=== PATIENT | male | born 1945 | race Caucasian/White ===

== ENCOUNTER 2017-12-03 09:22 | Inpatient (IN) | payer MEDICARE ==
[~2017-12-03] VITALS: Ht 175.3 cm; Wt 85.8 kg
[~2017-12-03 09:22] MED LIST: ASPI-1265 PO; GLIP10TA11 PO; HYDR-565 PO; LISI10TA4 PO; METF10002 PO; METF500T4 PO
[2017-12-03] MEDS ORDERED: normal saline 1000ML IV soln IV ONE ×2 (09:30→09:55)
[2017-12-03] MEDS ORDERED: levoFLOXACIN-Levaquin 750MG/D5 150 ML IV STA (09:55)
[2017-12-03 09:56] LABS: BASOPHILS % (AUTO) 0.3 % (0-1); EOSINOPHILS % (AUTO) 0.4 % (0-6); HEMOGLOBIN 16.4 g/dl (14.0-17.9); LYMPHOCYTES # (AUTO) 0.4 X10'3 (1.1-4.8); LYMPHOCYTES % (AUTO) 5.1 % (21-51); MEAN CORPUSCULAR HEMOGLOBIN 30.7 PG (27.0-31.0); MEAN CORPUSCULAR VOLUME 87.7 FL (78-98); MONOCYTES # (AUTO) 0.4 X10'3 (0-0.9); MONOCYTES % (AUTO) 5.5 % (2-12); NEUTROPHILS % (AUTO) 88.7 % (42-75); PLATELET COUNT 161 X10'3 (140-440); RED BLOOD COUNT 5.36 X10'6 (4.70-6.10); WHITE BLOOD COUNT 7.9 X10'3 (4.5-11.0)
[2017-12-03 10:22] LABS: CLARITY,URINE CLEAR (Clear); COLOR,URINE YELLOW (Yellow); GLUCOSE, URINE 100 mg/dl (Neg); KETONES,URINE 40 mg/dl (Neg); LEUKOCYTE ESTERASE ,URINE NEGATIVE (Neg); NITRITES, URINE NEGATIVE (Neg); OCCULT BLOOD,URINE SMALL (Neg); PH,URINE 5.5 (4.8-8.0); PROTEIN,URINE 100 mg/dl (Neg); UROBILINOGEN,URINE 0.2 E.U/dL (0.2-1.0)
[2017-12-03 10:22] LABS: ALANINE AMINOTRANSFERASE 31 U/L (12-78); ALBUMIN 4.2 G/DL (3.4-5.0); ALBUMIN/GLOBULIN RATIO 1.1 (1.1-1.5); ALKALINE PHOSPHATASE 45 IU/L (46-116); ANION GAP 15 (8-16); ASPARTATE AMINO TRANSFERASE 21 U/L (10-37); BILIRUBIN,TOTAL 0.7 MG/DL (0.1-1.0); BLOOD UREA NITROGEN 12 MG/DL (7-18); CHLORIDE 99 MMOL/L (99-107); CREATININE 1.09 MG/DL (0.60-1.10); GLUCOSE 250 MG/DL (70-104); MAGNESIUM 1.7 MG/DL (1.5-2.4); POTASSIUM 4.2 MMOL/L (3.5-5.1); SODIUM 137 MMOL/L (135-145); TOTAL CARBON DIOXIDE 23.2 MMOL/L (24-32); TOTAL PROTEIN 8.2 G/DL (6.4-8.2); eGFR 66 ML/MIN
[2017-12-03 10:29] LABS: UA COLLECTION TYPE STRAIGHT CATH
[2017-12-03 10:30] LABS: BACTERIA,URINE NONE SEEN /HPF (Neg); HYALINE CASTS 0-3 /LPF (NEGATIVE); MUCUS STRANDS FEW /LPF (Neg); RBC,URINE 0-2 /HPF (0-2); SQUAMOUS EPITHELIAL CELL,UR NONE SEEN /LPF (FEW); WBC,URINE 0-4 /HPF (0-4)
[2017-12-03 11:05] LABS: PARTIAL THROMBOPLASTIN TIME 29 SECONDS (22-32); PROTHROMBIN TIME 10.2 SECONDS (9.0-12.0)
[2017-12-03] MEDS ORDERED: furosemide 10 MG/1 ML 10ml inj IV ONE ×2 (12:45→14:30)
[2017-12-03] MEDS ORDERED: nitroGLYCERIN 0.4mg SUBLingual tab SL ONE (12:45)
[2017-12-03 13:30] LABS: ABG BASE EXCESS -5.9 mmol/L (-2.0-3.0); ABG HCO3 18.8 mmol/L (22.0-26.0); ABG OXYGEN SATURATION 96.5 % (95-98); ABG PCO2 (T) 35.2 mmHg (35.0-48.0); ABG PH (T) 7.346 (7.350-7.450); ABG PO2 (T) 87.8 mmHg (83-108); ALLEN'S TEST Positive; FCOHb 0.9 % (0.5-1.5); FMetHb 0.3 % (0.3-1.12); FO2Hb 95.3 % (94-100); MINUTE VOLUME 21 L/min; RESPIRATORY RATE 18 b/min; RESPIRATORY RATE (OBSERVED) 25 b/min; TOTAL HEMOGLOBIN 16.6 G/dl (14.0-18.0)
[2017-12-03] MEDS: normal saline 1000ml 1,000 ML IV SCH (14:28)
[2017-12-03] MEDS: K and/or MAG REPLACEMENT MC SCH (14:30)
[2017-12-03] MEDS ORDERED: acetaminophen 325mg tablet PO PRN ×2 (14:30)
[2017-12-03] MEDS ORDERED: HYDROcodone/acetaminophen 5mg/325mg tablet PO PRN (14:30)
[2017-12-03] MEDS ORDERED: potassium Cl 40MEQ/NS 500ml 500 ML IV PRN ×2 (14:30)
[2017-12-03] MEDS ORDERED: morphine 4 MG/ML inj SYRINge IV PRN ×2 (14:30)
[2017-12-03] MEDS ORDERED: glucagon, human recombinant 1mg kit SUBCUT PRN (14:30)
[2017-12-03] MEDS ORDERED: diphenhydrAMINE 50 mg/ml inj IV PRN (14:30)
[2017-12-03] MEDS ORDERED: ondansetron/PF 4mg/2ml inj IV PRN (14:30)
[2017-12-03] MEDS ORDERED: potassium Cl 20 mEq SR tablet PO PRN ×2 (14:30)
[2017-12-03] MEDS ORDERED: magnesium 4gm in 100ml NS 100 ML IV PRN (14:30)
[2017-12-03] MEDS ORDERED: aspirin 325mg tablet PO ONE (14:30)
[2017-12-03] MEDS ORDERED: magnesium 2GM in 50ml NS 50 ML IV PRN (14:30)
[2017-12-03] MEDS ORDERED: MESSAGE TO PHARMACY PO ONE (14:30)
[2017-12-03] MEDS ORDERED: magnesium Cl slow-release 64mg tablet PO PRN (14:30)
[2017-12-03] MEDS ORDERED: magnesium hydroxide 30ml (MOM) UD suspension PO PRN (14:30)
[2017-12-03] MEDS ORDERED: dextrose ORAL solution 15 GM/59 ML bottle PO PRN ×2 (14:30)
[2017-12-03] MEDS ORDERED: isosorbide mononitrate 30mg tab.SR.24H PO ONE (14:30)
[2017-12-03] MEDS ORDERED: dextrose 50%-water 50ml dispensing syringe IV PRN ×2 (14:30)
[2017-12-03] MEDS: vancomycin/NS 1 GM ADD-VANTAGE 250 ML IV SCH ×3 (14:55→19:00)
[2017-12-03] MEDS ORDERED: heparin 10,000 units/1 ML INJ IV ONE (15:25)
[2017-12-03 17:33] LABS: BASOPHILS % (AUTO) 0 % (0-1); EOSINOPHILS % (AUTO) 0 % (0-6); HEMATOCRIT 47.2 % (42.0-52.0); HEMOGLOBIN 16.5 g/dl (14.0-17.9); LYMPHOCYTES % (AUTO) 9.4 % (21-51); MEAN CORPUSCULAR HEMOGLOBIN 30.7 PG (27.0-31.0); MEAN CORPUSCULAR HGB CONC 34.9 % (33.0-36.5); MEAN PLATELET VOLUME 9.6 FL (7.4-10.4); MONOCYTES # (AUTO) 0.9 X10'3 (0-0.9); MONOCYTES % (AUTO) 8.4 % (2-12); NEUTROPHILS # (AUTO) 8.4 X10'3 (1.8-7.7); NEUTROPHILS % (AUTO) 82.2 % (42-75); PLATELET COUNT 154 X10'3 (140-440); RED BLOOD COUNT 5.37 X10'6 (4.70-6.10); WHITE BLOOD COUNT 10.2 X10'3 (4.5-11.0)
[2017-12-03 17:55] LABS: INR 1.1 INR; PROTHROMBIN TIME 11.4 SECONDS (9.0-12.0)
[2017-12-03 17:59] LABS: PARTIAL THROMBOPLASTIN TIME 110 SECONDS (22-32)
[2017-12-03 18:00] VITALS: BP 136/73
[2017-12-03] MEDS ORDERED: heparin, porcine 5000 units/ml vial SQ SCH (20:00)
[2017-12-03] MEDS: furosemide 10 MG/1 ML 10ml inj IV SCH (20:09)
[2017-12-03] MEDS: HYDROcodone/acetaminophen 10/325mg tab PO PRN (20:16)
[2017-12-03] MEDS: carVEDilol 3.125mg tablet PO SCH (20:17)
[2017-12-03] MEDS: insulin glargine (Lantus) pen - multi-dose SQ SCH (21:00)
[2017-12-03] MEDS ORDERED: temazepam 15mg capsule PO PRN (21:00)
[2017-12-03 22:00] VITALS: BP 105/47
[2017-12-03] MEDS ORDERED: tirofiban 5mg in NS 100mL 100 ML IV SCH (22:40)
[2017-12-03] MEDS: tirofiban 5mg in NS 100mL 100 ML IV SCH (23:29)
[2017-12-03] MEDS: heparin 10,000 units/1 ML INJ IV PRN (23:37)
[2017-12-04] VITALS (12 sets, daily range): BP systolic 101–149; BP diastolic 48–82
[2017-12-04] MEDS: tirofiban 5mg in NS 100mL 100 ML IV SCH (02:53)
[2017-12-04] MEDS: HYDROcodone/acetaminophen 10/325mg tab PO PRN ×4 (03:00→13:22)
[2017-12-04 05:58] LABS: BASOPHILS % (AUTO) 0 % (0-1); EOSINOPHILS % (AUTO) 0 % (0-6); HEMATOCRIT 42.1 % (42.0-52.0); HEMOGLOBIN 14.8 g/dl (14.0-17.9); LYMPHOCYTES # (AUTO) 1.1 X10'3 (1.1-4.8); LYMPHOCYTES % (AUTO) 13.5 % (21-51); MEAN CORPUSCULAR HEMOGLOBIN 31.1 PG (27.0-31.0); MEAN CORPUSCULAR HGB CONC 35.2 % (33.0-36.5); MEAN CORPUSCULAR VOLUME 88.2 FL (78-98); MEAN PLATELET VOLUME 9.3 FL (7.4-10.4); MONOCYTES # (AUTO) 0.7 X10'3 (0-0.9); MONOCYTES % (AUTO) 7.9 % (2-12); NEUTROPHILS # (AUTO) 6.6 X10'3 (1.8-7.7); NEUTROPHILS % (AUTO) 78.6 % (42-75); PLATELET COUNT 148 X10'3 (140-440); RED BLOOD COUNT 4.77 X10'6 (4.70-6.10); RED CELL DISTRIBUTION WIDTH 12.9 % (11.5-14.5); WHITE BLOOD COUNT 8.4 X10'3 (4.5-11.0)
[2017-12-04] MEDS ORDERED: heparin 1,000unit/ml 10ml vial 10 ML ONE (06:05)
[2017-12-04] MEDS ORDERED: LIDOcaine 1%/PF (10mg/ml) 5ml vial ONE (06:05)
[2017-12-04] MEDS ORDERED: iohexol 350MG/ML 100ml bottle IV ONE (06:05)
[2017-12-04 06:17] LABS: ALANINE AMINOTRANSFERASE 47 U/L (12-78); ALBUMIN 3.3 G/DL (3.4-5.0); ALBUMIN/GLOBULIN RATIO 0.9 (1.1-1.5); ALKALINE PHOSPHATASE 31 IU/L (46-116); ANION GAP 9 (8-16); ASPARTATE AMINO TRANSFERASE 240 U/L (10-37); BILIRUBIN,TOTAL 0.5 MG/DL (0.1-1.0); BLOOD UREA NITROGEN 16 MG/DL (7-18); BUN/CREATININE RATIO 17.8 (5.4-32.0); CALCIUM 8.1 MG/DL (8.5-10.1); CHLORIDE 101 MMOL/L (99-107); CHOL/HDL RATIO 2.7 (0.00-4.99); CHOLESTEROL 128 MG/DL (0-200); GLUCOSE 230 MG/DL (70-104); HDL CHOLESTEROL 47 MG/DL (35-60); LDL CHOLESTEROL 69 MG/DL (50-100); MAGNESIUM 1.8 MG/DL (1.5-2.4); PHOSPHORUS 2.7 MG/DL (2.3-4.5); POTASSIUM 3.5 MMOL/L (3.5-5.1); SODIUM 137 MMOL/L (135-145); TOTAL CARBON DIOXIDE 26.6 MMOL/L (24-32); TOTAL PROTEIN 6.9 G/DL (6.4-8.2); TRIGLYCERIDES 62 MG/DL (20-135); eGFR 82 ML/MIN
[2017-12-04] MEDS ORDERED: midazolam 2 mg/2 ml injection ONE (06:38)
[2017-12-04] MEDS ORDERED: ondansetron/PF 4mg/2ml inj IV PRN (07:40)
[2017-12-04] MEDS ORDERED: proCHLORperazine 10 MG/2 ml inj IV PRN (07:40)
[2017-12-04] MEDS ORDERED: OXAZEpam 15mg capsule PO PRN (07:40)
[2017-12-04] MEDS ORDERED: normal saline 1000ml 1,000 ML IV SCH (07:40)
[2017-12-04] MEDS: K and/or MAG REPLACEMENT MC SCH (08:00)
[2017-12-04] MEDS: levoFLOXACIN-Levaquin 500mg/D5 100 ML IV SCH (08:56)
[2017-12-04] MEDS: carVEDilol 3.125mg tablet PO SCH ×2 (08:56→20:16)
[2017-12-04] MEDS: furosemide 10 MG/1 ML 10ml inj IV SCH ×2 (08:56→20:20)
[2017-12-04] MEDS: aspirin 81mg tab.chew PO SCH (08:57)
[2017-12-04] MEDS: lisinopril 20mg tablet PO SCH (08:57)
[2017-12-04] MEDS: isosorbide mononitrate 30mg tab.SR.24H PO SCH (08:57)
[2017-12-04] MEDS: oseltamivir phos 75mg capsule PO SCH ×2 (09:24→20:17)
[2017-12-04] MEDS: insulin Lispro (HumaLOG) vial - multi-dose SQ SCH (13:50)
[2017-12-04] MEDS: mag hydrox/Alum hydrox/simeth 30ml oral suspension PO PRN (20:16)
[2017-12-04] MEDS: lactobacillus rhamnosus 10,000 MMU CELLS/CAPSULE PO SCH (20:17)
[2017-12-04] MEDS: heparin 10,000 units/1 ML INJ IV PRN (20:28)
[2017-12-04] MEDS: insulin glargine (Lantus) pen - multi-dose SQ SCH (22:46)
[2017-12-05] VITALS (9 sets, daily range): BP systolic 108–145; BP diastolic 45–59
[2017-12-05] MEDS: HYDROcodone/acetaminophen 10/325mg tab PO PRN ×4 (01:23→22:08)
[2017-12-05 02:15] LABS: BASOPHILS % (AUTO) 0.2 % (0-1); EOSINOPHILS % (AUTO) 0.5 % (0-6); HEMATOCRIT 41.2 % (42.0-52.0); HEMOGLOBIN 14.6 g/dl (14.0-17.9); LYMPHOCYTES # (AUTO) 1.3 X10'3 (1.1-4.8); LYMPHOCYTES % (AUTO) 19.7 % (21-51); MEAN CORPUSCULAR HEMOGLOBIN 31.1 PG (27.0-31.0); MEAN CORPUSCULAR HGB CONC 35.4 % (33.0-36.5); MEAN CORPUSCULAR VOLUME 87.9 FL (78-98); MEAN PLATELET VOLUME 9.9 FL (7.4-10.4); MONOCYTES # (AUTO) 0.5 X10'3 (0-0.9); MONOCYTES % (AUTO) 7.7 % (2-12); NEUTROPHILS # (AUTO) 4.7 X10'3 (1.8-7.7); NEUTROPHILS % (AUTO) 71.9 % (42-75); PLATELET COUNT 126 X10'3 (140-440); RED BLOOD COUNT 4.69 X10'6 (4.70-6.10); RED CELL DISTRIBUTION WIDTH 12.7 % (11.5-14.5); WHITE BLOOD COUNT 6.5 X10'3 (4.5-11.0)
[2017-12-05 02:29] LABS: ALANINE AMINOTRANSFERASE 49 U/L (12-78); ALBUMIN 3.1 G/DL (3.4-5.0); ALBUMIN/GLOBULIN RATIO 0.8 (1.1-1.5); ALKALINE PHOSPHATASE 30 IU/L (46-116); ANION GAP 10 (8-16); ASPARTATE AMINO TRANSFERASE 181 U/L (10-37); BILIRUBIN,TOTAL 0.3 MG/DL (0.1-1.0); BLOOD UREA NITROGEN 22 MG/DL (7-18); BUN/CREATININE RATIO 21.4 (5.4-32.0); CHLORIDE 98 MMOL/L (99-107); CREATININE 1.03 MG/DL (0.60-1.10); GLUCOSE 200 MG/DL (70-104); MAGNESIUM 1.9 MG/DL (1.5-2.4); PHOSPHORUS 2.6 MG/DL (2.3-4.5); POTASSIUM 3.5 MMOL/L (3.5-5.1); SODIUM 136 MMOL/L (135-145); TOTAL CARBON DIOXIDE 28.2 MMOL/L (24-32); TOTAL PROTEIN 6.8 G/DL (6.4-8.2); eGFR 71 ML/MIN
[2017-12-05] MEDS ORDERED: potassium Cl 20 mEq SR tablet PO STA (06:19)
[2017-12-05] MEDS ORDERED: magnesium 2GM in 50ml NS 50 ML IV ONE (06:20)
[2017-12-05] MEDS: furosemide 10 MG/1 ML 10ml inj IV SCH ×2 (07:47→20:14)
[2017-12-05] MEDS: carVEDilol 3.125mg tablet PO SCH ×2 (07:47→20:12)
[2017-12-05] MEDS: isosorbide mononitrate 30mg tab.SR.24H PO SCH (07:47)
[2017-12-05] MEDS: lactobacillus rhamnosus 10,000 MMU CELLS/CAPSULE PO SCH ×2 (07:47→20:12)
[2017-12-05] MEDS: amiodarone 200mg tablet PO SCH (07:48)
[2017-12-05] MEDS: lisinopril 20mg tablet PO SCH (07:48)
[2017-12-05] MEDS: oseltamivir phos 75mg capsule PO SCH ×2 (07:48→20:12)
[2017-12-05] MEDS: aspirin 81mg tab.chew PO SCH (07:48)
[2017-12-05] MEDS: levoFLOXACIN-Levaquin 500mg/D5 100 ML IV SCH (07:49)
[2017-12-05] MEDS: K and/or MAG REPLACEMENT MC SCH (08:00)
[2017-12-05] MEDS: spironolactone 25 MG tablet PO SCH (08:14)
[2017-12-05] MEDS: insulin Lispro (HumaLOG) vial - multi-dose SQ SCH ×2 (13:08→20:09)
[2017-12-05] MEDS ORDERED: VANCOMYCIN LEVEL IV NR (14:30)
[2017-12-05] MEDS: normal saline 1000ml 1,000 ML IV SCH (15:18)
[2017-12-05] MEDS: mag hydrox/Alum hydrox/simeth 30ml oral suspension PO PRN ×2 (17:04→22:08)
[2017-12-05] MEDS: insulin glargine (Lantus) pen - multi-dose SQ SCH (22:18)
[2017-12-06] MEDS: heparin 10,000 units/1 ML INJ IV PRN (01:36)
[2017-12-06 03:00] VITALS: BP 123/57
[2017-12-06] MEDS: HYDROcodone/acetaminophen 10/325mg tab PO PRN ×3 (04:59→20:29)
[2017-12-06 05:23] LABS: BASOPHILS % (AUTO) 0.4 % (0-1); EOSINOPHILS % (AUTO) 0.3 % (0-6); HEMATOCRIT 41.9 % (42.0-52.0); HEMOGLOBIN 14.6 g/dl (14.0-17.9); LYMPHOCYTES # (AUTO) 1.7 X10'3 (1.1-4.8); LYMPHOCYTES % (AUTO) 31.4 % (21-51); MEAN CORPUSCULAR HEMOGLOBIN 30.9 PG (27.0-31.0); MEAN CORPUSCULAR HGB CONC 34.8 % (33.0-36.5); MEAN CORPUSCULAR VOLUME 88.8 FL (78-98); MEAN PLATELET VOLUME 9.7 FL (7.4-10.4); MONOCYTES # (AUTO) 0.6 X10'3 (0-0.9); MONOCYTES % (AUTO) 10.5 % (2-12); NEUTROPHILS # (AUTO) 3.1 X10'3 (1.8-7.7); NEUTROPHILS % (AUTO) 57.4 % (42-75); PLATELET COUNT 121 X10'3 (140-440); RED BLOOD COUNT 4.72 X10'6 (4.70-6.10); WHITE BLOOD COUNT 5.3 X10'3 (4.5-11.0)
[2017-12-06 05:30] VITALS: BP 126/58
[2017-12-06 05:47] LABS: ALANINE AMINOTRANSFERASE 46 U/L (12-78); ALBUMIN 2.9 G/DL (3.4-5.0); ALBUMIN/GLOBULIN RATIO 0.8 (1.1-1.5); ALKALINE PHOSPHATASE 29 IU/L (46-116); ANION GAP 7 (8-16); ASPARTATE AMINO TRANSFERASE 105 U/L (10-37); BILIRUBIN,TOTAL 0.4 MG/DL (0.1-1.0); BLOOD UREA NITROGEN 20 MG/DL (7-18); CALCIUM 7.9 MG/DL (8.5-10.1); CHLORIDE 98 MMOL/L (99-107); CREATININE 0.91 MG/DL (0.60-1.10); GLUCOSE 130 MG/DL (70-104); MAGNESIUM 2.2 MG/DL (1.5-2.4); PHOSPHORUS 2.5 MG/DL (2.3-4.5); POTASSIUM 3.6 MMOL/L (3.5-5.1); SODIUM 136 MMOL/L (135-145); TOTAL CARBON DIOXIDE 30.7 MMOL/L (24-32); TOTAL PROTEIN 6.4 G/DL (6.4-8.2); eGFR 81 ML/MIN
[2017-12-06] MEDS: furosemide 10 MG/1 ML 10ml inj IV SCH ×2 (07:40→20:27)
[2017-12-06] MEDS: oseltamivir phos 75mg capsule PO SCH ×2 (07:41→20:28)
[2017-12-06] MEDS: lisinopril 20mg tablet PO SCH (07:41)
[2017-12-06] MEDS: amiodarone 200mg tablet PO SCH (07:41)
[2017-12-06] MEDS: spironolactone 25 MG tablet PO SCH (07:41)
[2017-12-06] MEDS: carVEDilol 3.125mg tablet PO SCH ×2 (07:41→20:29)
[2017-12-06] MEDS: aspirin 81mg tab.chew PO SCH (07:41)
[2017-12-06] MEDS: lactobacillus rhamnosus 10,000 MMU CELLS/CAPSULE PO SCH ×2 (07:41→20:28)
[2017-12-06] MEDS: isosorbide mononitrate 30mg tab.SR.24H PO SCH (07:41)
[2017-12-06] MEDS: K and/or MAG REPLACEMENT MC SCH (08:00)
[2017-12-06] MEDS: insulin Lispro (HumaLOG) vial - multi-dose SQ SCH ×3 (09:16→20:49)
[2017-12-06 11:00] VITALS: BP 119/41
[2017-12-06] MEDS: levoFLOXACIN 500mg tablet PO SCH (11:33)
[2017-12-06] MEDS: mag hydrox/Alum hydrox/simeth 30ml oral suspension PO PRN (14:02)
[2017-12-06] MEDS ORDERED: lactulose 20gm/30ml cup PO ONE (14:30)
[2017-12-06 15:00] VITALS: BP 110/50
[2017-12-06 17:30] VITALS: BP 118/51
[2017-12-06] MEDS: docusate sod 100mg capsule PO SCH (20:28)
[2017-12-06 22:00] VITALS: BP 140/52
[2017-12-06] MEDS: insulin glargine (Lantus) pen - multi-dose SQ SCH (22:34)
[2017-12-06] MEDS: calcium carbonate 500mg chew tablet PO PRN (22:36)
[2017-12-07 03:30] LABS: BASOPHILS % (AUTO) 0.6 % (0-1); EOSINOPHILS % (AUTO) 0.2 % (0-6); HEMATOCRIT 41.6 % (42.0-52.0); HEMOGLOBIN 14.5 g/dl (14.0-17.9); LYMPHOCYTES # (AUTO) 1.7 X10'3 (1.1-4.8); LYMPHOCYTES % (AUTO) 36.2 % (21-51); MEAN CORPUSCULAR HGB CONC 34.9 % (33.0-36.5); MEAN CORPUSCULAR VOLUME 88.9 FL (78-98); MEAN PLATELET VOLUME 9.1 FL (7.4-10.4); MONOCYTES # (AUTO) 0.5 X10'3 (0-0.9); MONOCYTES % (AUTO) 10.7 % (2-12); NEUTROPHILS # (AUTO) 2.5 X10'3 (1.8-7.7); NEUTROPHILS % (AUTO) 52.3 % (42-75); PLATELET COUNT 115 X10'3 (140-440); RED BLOOD COUNT 4.68 X10'6 (4.70-6.10); RED CELL DISTRIBUTION WIDTH 12.8 % (11.5-14.5); WHITE BLOOD COUNT 4.7 X10'3 (4.5-11.0)
[2017-12-07 03:46] LABS: ALANINE AMINOTRANSFERASE 47 U/L (12-78); ALBUMIN 2.9 G/DL (3.4-5.0); ALBUMIN/GLOBULIN RATIO 0.9 (1.1-1.5); ALKALINE PHOSPHATASE 33 IU/L (46-116); ANION GAP 8 (8-16); ASPARTATE AMINO TRANSFERASE 67 U/L (10-37); BILIRUBIN,TOTAL 0.4 MG/DL (0.1-1.0); BLOOD UREA NITROGEN 19 MG/DL (7-18); BUN/CREATININE RATIO 22.4 (5.4-32.0); CALCIUM 8.2 MG/DL (8.5-10.1); CHLORIDE 97 MMOL/L (99-107); CREATININE 0.85 MG/DL (0.60-1.10); GLUCOSE 113 MG/DL (70-104); PHOSPHORUS 3.3 MG/DL (2.3-4.5); POTASSIUM 3.1 MMOL/L (3.5-5.1); SODIUM 135 MMOL/L (135-145); TOTAL CARBON DIOXIDE 30.4 MMOL/L (24-32); TOTAL PROTEIN 6.3 G/DL (6.4-8.2); eGFR 88 ML/MIN
[2017-12-07] MEDS: HYDROcodone/acetaminophen 10/325mg tab PO PRN ×4 (05:28→23:29)
[2017-12-07 05:30] VITALS: BP 160/66
[2017-12-07] MEDS: spironolactone 25 MG tablet PO SCH (07:54)
[2017-12-07] MEDS: furosemide 10 MG/1 ML 10ml inj IV SCH ×2 (07:54→20:15)
[2017-12-07] MEDS: lactobacillus rhamnosus 10,000 MMU CELLS/CAPSULE PO SCH ×2 (07:55→20:13)
[2017-12-07] MEDS: lisinopril 20mg tablet PO SCH (07:55)
[2017-12-07] MEDS: aspirin 81mg tab.chew PO SCH (07:55)
[2017-12-07] MEDS: docusate sod 100mg capsule PO SCH ×2 (07:55→20:00)
[2017-12-07] MEDS: carVEDilol 3.125mg tablet PO SCH ×2 (07:55→19:21)
[2017-12-07] MEDS: amiodarone 200mg tablet PO SCH (07:55)
[2017-12-07] MEDS: oseltamivir phos 75mg capsule PO SCH ×2 (07:55→20:12)
[2017-12-07] MEDS: isosorbide mononitrate 30mg tab.SR.24H PO SCH (07:55)
[2017-12-07] MEDS: K and/or MAG REPLACEMENT MC SCH (08:00)
[2017-12-07] MEDS: insulin Lispro (HumaLOG) vial - multi-dose SQ SCH ×3 (09:36→21:05)
[2017-12-07] MEDS: levoFLOXACIN 500mg tablet PO SCH (11:49)
[2017-12-07] MEDS: normal saline 1000ml 1,000 ML IV SCH (14:28)
[2017-12-07] MEDS: mag hydrox/Alum hydrox/simeth 30ml oral suspension PO PRN ×2 (15:03→22:00)
[2017-12-07 16:36] VITALS: BP 139/63
[2017-12-07 18:00] VITALS: BP 143/63
[2017-12-07 22:00] VITALS: BP 143/52
[2017-12-07] MEDS: insulin glargine (Lantus) pen - multi-dose SQ SCH (22:10)
[2017-12-08 02:00] VITALS: BP 106/50
[2017-12-08 02:27] LABS: BASOPHILS % (AUTO) 0.7 % (0-1); EOSINOPHILS % (AUTO) 0.7 % (0-6); HEMATOCRIT 39.7 % (42.0-52.0); HEMOGLOBIN 13.6 g/dl (14.0-17.9); LYMPHOCYTES # (AUTO) 2.1 X10'3 (1.1-4.8); LYMPHOCYTES % (AUTO) 46.3 % (21-51); MEAN CORPUSCULAR HEMOGLOBIN 30.4 PG (27.0-31.0); MEAN CORPUSCULAR HGB CONC 34.3 % (33.0-36.5); MEAN CORPUSCULAR VOLUME 88.5 FL (78-98); MEAN PLATELET VOLUME 9.3 FL (7.4-10.4); MONOCYTES # (AUTO) 0.6 X10'3 (0-0.9); MONOCYTES % (AUTO) 12.2 % (2-12); NEUTROPHILS # (AUTO) 1.8 X10'3 (1.8-7.7); NEUTROPHILS % (AUTO) 40.1 % (42-75); PLATELET COUNT 114 X10'3 (140-440); RED BLOOD COUNT 4.48 X10'6 (4.70-6.10); RED CELL DISTRIBUTION WIDTH 12.3 % (11.5-14.5); WHITE BLOOD COUNT 4.5 X10'3 (4.5-11.0)
[2017-12-08 02:49] LABS: ALBUMIN 2.9 G/DL (3.4-5.0); ALBUMIN/GLOBULIN RATIO 0.9 (1.1-1.5); ANION GAP 8 (8-16); ASPARTATE AMINO TRANSFERASE 51 U/L (10-37); BILIRUBIN,TOTAL 0.3 MG/DL (0.1-1.0); BLOOD UREA NITROGEN 19 MG/DL (7-18); BUN/CREATININE RATIO 20.7 (5.4-32.0); CALCIUM 8.1 MG/DL (8.5-10.1); CHLORIDE 98 MMOL/L (99-107); CREATININE 0.92 MG/DL (0.60-1.10); GLUCOSE 102 MG/DL (70-104); PHOSPHORUS 3.4 MG/DL (2.3-4.5); POTASSIUM 3.2 MMOL/L (3.5-5.1); SODIUM 138 MMOL/L (135-145); TOTAL CARBON DIOXIDE 31.6 MMOL/L (24-32); TOTAL PROTEIN 6.3 G/DL (6.4-8.2); eGFR 80 ML/MIN
[2017-12-08 02:50] LABS: ALANINE AMINOTRANSFERASE 41 U/L (12-78); ALKALINE PHOSPHATASE 35 IU/L (46-116)
[2017-12-08] MEDS: HYDROcodone/acetaminophen 5mg/325mg tablet PO PRN (03:42)
[2017-12-08 06:00] VITALS: BP 141/62
[2017-12-08] MEDS: carVEDilol 3.125mg tablet PO SCH ×2 (07:47→19:23)
[2017-12-08] MEDS: isosorbide mononitrate 30mg tab.SR.24H PO SCH (07:47)
[2017-12-08] MEDS: amiodarone 200mg tablet PO SCH (07:47)
[2017-12-08] MEDS: lactobacillus rhamnosus 10,000 MMU CELLS/CAPSULE PO SCH ×2 (07:47→19:23)
[2017-12-08] MEDS: docusate sod 100mg capsule PO SCH ×2 (07:47→19:45)
[2017-12-08] MEDS: aspirin 81mg tab.chew PO SCH (07:47)
[2017-12-08] MEDS: lisinopril 20mg tablet PO SCH (07:47)
[2017-12-08] MEDS: furosemide 10 MG/1 ML 10ml inj IV SCH ×2 (07:48→19:27)
[2017-12-08] MEDS: spironolactone 25 MG tablet PO SCH (07:48)
[2017-12-08] MEDS: insulin Lispro (HumaLOG) vial - multi-dose SQ SCH ×3 (08:58→19:42)
[2017-12-08] MEDS: oseltamivir phos 75mg capsule PO SCH ×2 (10:56→19:24)
[2017-12-08] MEDS: levoFLOXACIN 500mg tablet PO SCH (10:56)
[2017-12-08 11:00] VITALS: BP 133/58
[2017-12-08] MEDS: HYDROcodone/acetaminophen 10/325mg tab PO PRN ×3 (11:20→23:35)
[2017-12-08 15:00] VITALS: BP 133/57
[2017-12-08 18:00] VITALS: BP 113/53
[2017-12-08] MEDS ORDERED: magnesium 4gm in 100ml NS 100 ML IV PRN (18:35)
[2017-12-08] MEDS ORDERED: magnesium 2GM in 50ml NS 50 ML IV PRN (18:35)
[2017-12-08] MEDS ORDERED: potassium Cl 20 mEq SR tablet PO PRN (18:35)
[2017-12-08] MEDS ORDERED: potassium Cl 40MEQ/NS 500ml 500 ML IV PRN ×2 (18:35)
[2017-12-08] MEDS ORDERED: magnesium Cl slow-release 64mg tablet PO PRN (18:35)
[2017-12-08] MEDS: K and/or MAG REPLACEMENT MC SCH (18:53)
[2017-12-08] MEDS: potassium Cl 20 mEq SR tablet PO PRN ×2 (19:23→23:35)
[2017-12-08 22:00] VITALS: BP 126/60
[2017-12-08] MEDS: insulin glargine (Lantus) pen - multi-dose SQ SCH (22:01)
[2017-12-08] MEDS: heparin 10,000 units/1 ML INJ IV PRN (22:12)
[2017-12-08] MEDS: mag hydrox/Alum hydrox/simeth 30ml oral suspension PO PRN (23:34)
[2017-12-09 03:00] VITALS: BP 123/75
[2017-12-09 05:24] LABS: BASOPHILS % (AUTO) 0.8 % (0-1); EOSINOPHILS # (AUTO) 0.1 X10'3 (0-0.9); EOSINOPHILS % (AUTO) 1.3 % (0-6); HEMATOCRIT 38.7 % (42.0-52.0); HEMOGLOBIN 13.6 g/dl (14.0-17.9); LYMPHOCYTES # (AUTO) 2.1 X10'3 (1.1-4.8); LYMPHOCYTES % (AUTO) 43.6 % (21-51); MEAN CORPUSCULAR HGB CONC 35.1 % (33.0-36.5); MEAN CORPUSCULAR VOLUME 88.3 FL (78-98); MEAN PLATELET VOLUME 9.8 FL (7.4-10.4); MONOCYTES # (AUTO) 0.6 X10'3 (0-0.9); MONOCYTES % (AUTO) 11.5 % (2-12); NEUTROPHILS # (AUTO) 2.1 X10'3 (1.8-7.7); NEUTROPHILS % (AUTO) 42.8 % (42-75); PLATELET COUNT 119 X10'3 (140-440); RED BLOOD COUNT 4.38 X10'6 (4.70-6.10); RED CELL DISTRIBUTION WIDTH 12.9 % (11.5-14.5); WHITE BLOOD COUNT 4.9 X10'3 (4.5-11.0)
[2017-12-09] MEDS: HYDROcodone/acetaminophen 10/325mg tab PO PRN ×3 (05:34→23:00)
[2017-12-09] MEDS: calcium carbonate 500mg chew tablet PO PRN (05:34)
[2017-12-09 06:00] VITALS: BP 158/67
[2017-12-09 06:06] LABS: GLUCOSE 132 MG/DL (70-104); SODIUM 138 MMOL/L (135-145)
[2017-12-09 06:07] LABS: ALBUMIN 2.9 G/DL (3.4-5.0); ANION GAP 7 (8-16); BLOOD UREA NITROGEN 17 MG/DL (7-18); BUN/CREATININE RATIO 18.3 (5.4-32.0); CALCIUM 8.5 MG/DL (8.5-10.1); CHLORIDE 99 MMOL/L (99-107); CREATININE 0.93 MG/DL (0.60-1.10); MAGNESIUM 2.1 MG/DL (1.5-2.4); POTASSIUM 3.5 MMOL/L (3.5-5.1); TOTAL CARBON DIOXIDE 32.3 MMOL/L (24-32); eGFR 79 ML/MIN
[2017-12-09] MEDS: docusate sod 100mg capsule PO SCH ×2 (07:49→19:27)
[2017-12-09] MEDS: carVEDilol 3.125mg tablet PO SCH ×2 (07:52→19:27)
[2017-12-09] MEDS: spironolactone 25 MG tablet PO SCH (07:52)
[2017-12-09] MEDS: isosorbide mononitrate 30mg tab.SR.24H PO SCH (07:52)
[2017-12-09] MEDS: lactobacillus rhamnosus 10,000 MMU CELLS/CAPSULE PO SCH ×2 (07:52→19:27)
[2017-12-09] MEDS: amiodarone 200mg tablet PO SCH (07:52)
[2017-12-09] MEDS: aspirin 81mg tab.chew PO SCH (07:52)
[2017-12-09] MEDS: furosemide 10 MG/1 ML 10ml inj IV SCH ×2 (07:52→19:27)
[2017-12-09] MEDS: lisinopril 20mg tablet PO SCH (07:52)
[2017-12-09] MEDS: K and/or MAG REPLACEMENT MC SCH (08:00)
[2017-12-09] MEDS: insulin Lispro (HumaLOG) vial - multi-dose SQ SCH ×3 (08:18→19:31)
[2017-12-09] MEDS: oseltamivir phos 75mg capsule PO SCH (08:52)
[2017-12-09 11:00] VITALS: BP 125/88
[2017-12-09] MEDS: levoFLOXACIN 500mg tablet PO SCH (11:03)
[2017-12-09] MEDS: normal saline 1000ml 1,000 ML IV SCH (14:08)
[2017-12-09 15:00] VITALS: BP 127/64
[2017-12-09] MEDS: heparin 10,000 units/1 ML INJ IV PRN (18:08)
[2017-12-09 19:00] VITALS: BP 144/70
[2017-12-09] MEDS: insulin glargine (Lantus) pen - multi-dose SQ SCH (21:00)
[2017-12-09] MEDS: mag hydrox/Alum hydrox/simeth 30ml oral suspension PO PRN (22:59)
[2017-12-09 23:00] VITALS: BP 135/58
[2017-12-10 00:40] LABS: BASOPHILS % (AUTO) 0.4 % (0-1); EOSINOPHILS # (AUTO) 0.1 X10'3 (0-0.9); EOSINOPHILS % (AUTO) 1.4 % (0-6); HEMATOCRIT 39.3 % (42.0-52.0); HEMOGLOBIN 13.7 g/dl (14.0-17.9); LYMPHOCYTES # (AUTO) 2.3 X10'3 (1.1-4.8); MEAN CORPUSCULAR HEMOGLOBIN 30.7 PG (27.0-31.0); MEAN CORPUSCULAR HGB CONC 34.8 % (33.0-36.5); MEAN CORPUSCULAR VOLUME 88.1 FL (78-98); MEAN PLATELET VOLUME 9.2 FL (7.4-10.4); MONOCYTES # (AUTO) 0.5 X10'3 (0-0.9); MONOCYTES % (AUTO) 8.9 % (2-12); NEUTROPHILS # (AUTO) 3.1 X10'3 (1.8-7.7); NEUTROPHILS % (AUTO) 51.3 % (42-75); PLATELET COUNT 136 X10'3 (140-440); RED BLOOD COUNT 4.47 X10'6 (4.70-6.10); WHITE BLOOD COUNT 6.1 X10'3 (4.5-11.0)
[2017-12-10 00:49] LABS: MAGNESIUM 2.1 MG/DL (1.5-2.4); POTASSIUM 3.4 MMOL/L (3.5-5.1)
[2017-12-10 03:00] VITALS: BP 135/56
[2017-12-10] MEDS: HYDROcodone/acetaminophen 10/325mg tab PO PRN ×3 (05:31→22:11)
[2017-12-10 06:00] VITALS: BP 157/70
[2017-12-10] MEDS: isosorbide mononitrate 30mg tab.SR.24H PO SCH (07:57)
[2017-12-10] MEDS: spironolactone 25 MG tablet PO SCH (07:57)
[2017-12-10] MEDS: lactobacillus rhamnosus 10,000 MMU CELLS/CAPSULE PO SCH ×2 (07:57→19:13)
[2017-12-10] MEDS: potassium Cl 20 mEq SR tablet PO PRN ×3 (07:57→17:32)
[2017-12-10] MEDS: carVEDilol 3.125mg tablet PO SCH ×2 (07:57→19:18)
[2017-12-10] MEDS: lisinopril 20mg tablet PO SCH (07:57)
[2017-12-10] MEDS: amiodarone 200mg tablet PO SCH (07:57)
[2017-12-10] MEDS: docusate sod 100mg capsule PO SCH ×2 (07:57→19:13)
[2017-12-10] MEDS: aspirin 81mg tab.chew PO SCH (07:57)
[2017-12-10] MEDS: furosemide 10 MG/1 ML 10ml inj IV SCH ×2 (07:57→19:13)
[2017-12-10] MEDS: insulin Lispro (HumaLOG) vial - multi-dose SQ SCH ×3 (08:07→19:05)
[2017-12-10] MEDS: K and/or MAG REPLACEMENT MC SCH (08:11)
[2017-12-10 11:00] VITALS: BP 114/57
[2017-12-10] MEDS: levoFLOXACIN 500mg tablet PO SCH (11:15)
[2017-12-10] MEDS: normal saline 1000ml 1,000 ML IV SCH (12:45)
[2017-12-10 15:00] VITALS: BP 140/63
[2017-12-10 19:00] VITALS: BP 131/61
[2017-12-10] MEDS: insulin glargine (Lantus) pen - multi-dose SQ SCH (21:03)
[2017-12-10 23:00] VITALS: BP 119/53
[2017-12-11] VITALS (7 sets, daily range): BP systolic 101–171; BP diastolic 48–82
[2017-12-11] MEDS: HYDROcodone/acetaminophen 10/325mg tab PO PRN ×3 (02:15→17:47)
[2017-12-11 02:47] LABS: MAGNESIUM 2.2 MG/DL (1.5-2.4); POTASSIUM 3.9 MMOL/L (3.5-5.1)
[2017-12-11] MEDS: K and/or MAG REPLACEMENT MC SCH (08:00)
[2017-12-11] MEDS: aspirin 81mg tab.chew PO SCH (08:10)
[2017-12-11] MEDS: lactobacillus rhamnosus 10,000 MMU CELLS/CAPSULE PO SCH ×2 (08:10→20:22)
[2017-12-11] MEDS: lisinopril 20mg tablet PO SCH (08:10)
[2017-12-11] MEDS: isosorbide mononitrate 30mg tab.SR.24H PO SCH (08:10)
[2017-12-11] MEDS: carVEDilol 3.125mg tablet PO SCH ×2 (08:10→20:22)
[2017-12-11] MEDS: docusate sod 100mg capsule PO SCH ×2 (08:10→20:22)
[2017-12-11] MEDS: spironolactone 25 MG tablet PO SCH (08:10)
[2017-12-11] MEDS: amiodarone 200mg tablet PO SCH (08:10)
[2017-12-11] MEDS: furosemide 10 MG/1 ML 10ml inj IV SCH ×2 (08:11→20:22)
[2017-12-11] MEDS: insulin Lispro (HumaLOG) vial - multi-dose SQ SCH ×3 (08:26→18:53)
[2017-12-11] MEDS: mag hydrox/Alum hydrox/simeth 30ml oral suspension PO PRN ×2 (09:02→18:50)
[2017-12-11] MEDS: levoFLOXACIN 500mg tablet PO SCH (11:44)
[2017-12-11] MEDS: normal saline 1000ml 1,000 ML IV SCH (14:28)
[2017-12-11] MEDS: calcium carbonate 500mg chew tablet PO PRN (20:49)
[2017-12-11] MEDS: insulin glargine (Lantus) pen - multi-dose SQ SCH (20:51)
[2017-12-12] VITALS (7 sets, daily range): BP systolic 112–152; BP diastolic 53–70
[2017-12-12 03:02] LABS: MAGNESIUM 2.5 MG/DL (1.5-2.4); POTASSIUM 4.2 MMOL/L (3.5-5.1)
[2017-12-12] MEDS: HYDROcodone/acetaminophen 10/325mg tab PO PRN ×4 (05:04→22:06)
[2017-12-12] MEDS: K and/or MAG REPLACEMENT MC SCH (08:00)
[2017-12-12] MEDS: spironolactone 25 MG tablet PO SCH (10:01)
[2017-12-12] MEDS: lactobacillus rhamnosus 10,000 MMU CELLS/CAPSULE PO SCH ×2 (10:01→20:58)
[2017-12-12] MEDS: aspirin 81mg tab.chew PO SCH (10:01)
[2017-12-12] MEDS: carVEDilol 3.125mg tablet PO SCH ×2 (10:01→20:58)
[2017-12-12] MEDS: lisinopril 20mg tablet PO SCH (10:02)
[2017-12-12] MEDS: docusate sod 100mg capsule PO SCH ×2 (10:02→20:58)
[2017-12-12] MEDS: amiodarone 200mg tablet PO SCH (10:02)
[2017-12-12] MEDS: isosorbide mononitrate 30mg tab.SR.24H PO SCH (10:02)
[2017-12-12] MEDS: furosemide 10 MG/1 ML 10ml inj IV SCH ×2 (10:05→20:58)
[2017-12-12] MEDS: insulin Lispro (HumaLOG) vial - multi-dose SQ SCH ×2 (10:09→17:11)
[2017-12-12] MEDS: levoFLOXACIN 500mg tablet PO SCH (11:54)
[2017-12-12] MEDS: normal saline 1000ml 1,000 ML IV SCH (15:31)
[2017-12-12] MEDS: mag hydrox/Alum hydrox/simeth 30ml oral suspension PO PRN (16:21)
[2017-12-12] MEDS: insulin glargine (Lantus) pen - multi-dose SQ SCH (21:59)
[2017-12-13 03:00] VITALS: BP 154/68
[2017-12-13 06:23] LABS: MAGNESIUM 2.1 MG/DL (1.5-2.4)
[2017-12-13 06:30] VITALS: BP 151/68
[2017-12-13 06:38] LABS: BASOPHILS % (AUTO) 0.4 % (0-1); EOSINOPHILS # (AUTO) 0.1 X10'3 (0-0.9); HEMATOCRIT 42.1 % (42.0-52.0); HEMOGLOBIN 14.2 g/dl (14.0-17.9); LYMPHOCYTES # (AUTO) 3.1 X10'3 (1.1-4.8); LYMPHOCYTES % (AUTO) 43.6 % (21-51); MEAN CORPUSCULAR HEMOGLOBIN 30.3 PG (27.0-31.0); MEAN CORPUSCULAR HGB CONC 33.8 % (33.0-36.5); MEAN CORPUSCULAR VOLUME 89.6 FL (78-98); MEAN PLATELET VOLUME 9.8 FL (7.4-10.4); MONOCYTES # (AUTO) 0.8 X10'3 (0-0.9); MONOCYTES % (AUTO) 11.5 % (2-12); NEUTROPHILS # (AUTO) 2.9 X10'3 (1.8-7.7); NEUTROPHILS % (AUTO) 42.5 % (42-75); PLATELET COUNT 200 X10'3 (140-440); RED CELL DISTRIBUTION WIDTH 12.3 % (11.5-14.5); WHITE BLOOD COUNT 6.9 X10'3 (4.5-11.0)
[2017-12-13] MEDS: K and/or MAG REPLACEMENT MC SCH (08:00)
[2017-12-13] MEDS: carVEDilol 3.125mg tablet PO SCH (09:00)
[2017-12-13] MEDS: aspirin 81mg tab.chew PO SCH (09:00)
[2017-12-13] MEDS: lisinopril 20mg tablet PO SCH (09:00)
[2017-12-13] MEDS: furosemide 10 MG/1 ML 10ml inj IV SCH (09:00)
[2017-12-13] MEDS: amiodarone 200mg tablet PO SCH (09:00)
[2017-12-13] MEDS: docusate sod 100mg capsule PO SCH (09:00)
[2017-12-13] MEDS: isosorbide mononitrate 30mg tab.SR.24H PO SCH (09:00)
[2017-12-13] MEDS: lactobacillus rhamnosus 10,000 MMU CELLS/CAPSULE PO SCH (09:00)
[2017-12-13] MEDS: spironolactone 25 MG tablet PO SCH (09:00)
[2017-12-13] MEDS: insulin Lispro (HumaLOG) vial - multi-dose SQ SCH (09:09)
[2017-12-13] MEDS: HYDROcodone/acetaminophen 5mg/325mg tablet PO PRN (09:10)
[2017-12-13] MEDS ORDERED: AMIO200T57 PO (10:57)
[2017-12-13] MEDS ORDERED: FURO-150 PO (10:57)
[2017-12-13] MEDS ORDERED: CLOP75TA15 PO (10:57)
[2017-12-13 11:00] VITALS: BP 135/61
[2017-12-13] MEDS ORDERED: COR3.125T PO (11:06)
[2017-12-13] MEDS: levoFLOXACIN 500mg tablet PO SCH (12:13)
== END 2017-12-13 15:40 | disposition home or self-care (01) | DRG 280 ==
LOC: ER 09:22 → ED HOLD 14:28 → PCU 3S 15:52
PROVIDERS: ADMIT Family Medicine; ATTEND Internal Medicine
PROC: 5A09357 Assistance with Respiratory Ventilation, Less than 24 Consecutive Hours, Continuous Positive Airway Pressure (ICD-10-PCS; principal; 2017-12-03)
PROC: 4A023N7 Measurement of Cardiac Sampling and Pressure, Left Heart, Percutaneous Approach (ICD-10-PCS; 2017-12-04)
PROC: B2111ZZ Fluoroscopy of Multiple Coronary Arteries using Low Osmolar Contrast (ICD-10-PCS; 2017-12-04)
PROC: B2151ZZ Fluoroscopy of Left Heart using Low Osmolar Contrast (ICD-10-PCS; 2017-12-04)
DX: I11.0 Hypertensive heart disease with heart failure (principal); J10.00 Influenza due to other identified influenza virus with unspecified type of pneumonia; I21.4 Non-ST elevation (NSTEMI) myocardial infarction; J96.01 Acute respiratory failure with hypoxia; J18.9 Pneumonia, unspecified organism; I47.1 Supraventricular tachycardia; I45.2 Bifascicular block; I50.23 Acute on chronic systolic (congestive) heart failure; I42.9 Cardiomyopathy, unspecified; E11.9 Type 2 diabetes mellitus without complications; I25.10 Atherosclerotic heart disease of native coronary artery without angina pectoris; M54.5 Low back pain; E78.5 Hyperlipidemia, unspecified; I44.0 Atrioventricular block, first degree; F17.220 Nicotine dependence, chewing tobacco, uncomplicated; Z89.512 Acquired absence of left leg below knee; Z88.0 Allergy status to penicillin; Z79.82 Long term (current) use of aspirin; Z79.84 Long term (current) use of oral hypoglycemic drugs; Z85.828 Personal history of other malignant neoplasm of skin; Z80.0 Family history of malignant neoplasm of digestive organs; Z80.41 Family history of malignant neoplasm of ovary; Z80.9 Family history of malignant neoplasm, unspecified
CPT/HCPCS: 36415; 36600; 71045; 80048; 80053; 80061; 81001; 82803; 82948; 83036; 83605; 83735; 84100; 84132; 84145; 84484; 85018; 85025; 85610; 85730; 87040; 87070; 87502; 87503; 93005; 93308; 93458; 94660; 96361; 96374; 99152; 99285; A4353; A4620; A6213; A6250; A6257; A6258; C1769; J1644; J1815; J1940; J1956; J2001; J2250; J2270; J3246; J3370; J3475; J7030; Q9967

== ENCOUNTER 2018-01-03 15:38 | Emergency (ER) | payer MEDICARE ==
[~2018-01-03] VITALS: Ht 175.3 cm; Wt 88.1 kg
[~2018-01-03 15:38] MED LIST changes: +AMIO200T57 PO; +CLOP75TA15 PO; +COR3.125T PO; +FURO-150 PO; -METF500T4 PO
[2018-01-03 16:08] VITALS: BP 144/84
== END 2018-01-03 16:11 | disposition home or self-care (01) ==
LOC: ER 15:39
DX: L25.9 Unspecified contact dermatitis, unspecified cause (principal); E11.9 Type 2 diabetes mellitus without complications; Z88.0 Allergy status to penicillin; Z79.82 Long term (current) use of aspirin
CPT/HCPCS: 99281

== ENCOUNTER 2018-12-13 20:40 | Emergency (ER) | payer MEDICARE ==
[~2018-12-13] VITALS: Ht 175.3 cm; Wt 90.7 kg
[~2018-12-13 20:40] MED LIST changes: +AMIO200T40 PO; -AMIO200T57 PO; +HYDR-4353 PO; -HYDR-565 PO; +METF-438 PO; -METF10002 PO
[2018-12-13 21:41] VITALS: BP 166/76
[2018-12-13] MEDS ORDERED: LIDOcaine 1.5% w/epinephrine 1:200,000 5ml ampul IJ ONE (21:55)
[2018-12-13] MEDS ORDERED: LIDOcaine 1% w/EPI 1:100,000 30ml vial (MDV) IJ ONE (22:10)
== END 2018-12-13 22:45 | disposition home or self-care (01) ==
LOC: VAS 20:40 → ER 22:45
DX: S01.81XA Laceration without foreign body of other part of head, initial encounter (principal); E11.9 Type 2 diabetes mellitus without complications; Z98.890 Other specified postprocedural states; Z88.0 Allergy status to penicillin; Z79.82 Long term (current) use of aspirin; Z79.899 Other long term (current) drug therapy; W01.0XXA Fall on same level from slipping, tripping and stumbling without subsequent striking against object, initial encounter; Y93.01 Activity, walking, marching and hiking; Y92.89 Other specified places as the place of occurrence of the external cause; Y99.8 Other external cause status
CPT/HCPCS: 12011; 70450; 99284; J3490

== ENCOUNTER 2019-05-10 18:26 | Emergency (ER) | payer MEDICARE ==
[~2019-05-10] VITALS: Ht 175.3 cm; Wt 92.0 kg
[~2019-05-10 18:26] MED LIST changes: -AMIO200T40 PO; +AMIO200T61 PO
[2019-05-10] MEDS ORDERED: SULF1TAB49 PO (20:00)
[2019-05-10] MEDS ORDERED: sulfamethoxazole/trimethoprim DS (800/160mg) tablet PO ONE (20:00)
[2019-05-10 20:09] VITALS: BP 165/90
== END 2019-05-10 20:14 | disposition home or self-care (01) ==
LOC: ER 18:26
DX: S80.811A Abrasion, right lower leg, initial encounter (principal); L03.115 Cellulitis of right lower limb; E11.9 Type 2 diabetes mellitus without complications; Z88.0 Allergy status to penicillin; Z79.82 Long term (current) use of aspirin; Z79.84 Long term (current) use of oral hypoglycemic drugs; Z79.899 Other long term (current) drug therapy; Z98.890 Other specified postprocedural states; X58.XXXA Exposure to other specified factors, initial encounter; Y93.89 Activity, other specified; Y92.89 Other specified places as the place of occurrence of the external cause; Y99.8 Other external cause status
CPT/HCPCS: 99284